=== PATIENT | female | born 1970 | race Hispanic/Latino ===

== ENCOUNTER 2020-02-29 20:46 | Inpatient (IN) | payer OTHER ==
[~2020-02-29] VITALS: Ht 152.4 cm; Wt 84.6 kg
[2020-02-29] MEDS ORDERED: AZITHROMYCIN 250 MG TABLET PO ONE (22:38)
[2020-02-29] MEDS ORDERED: DEXAMETHASONE SOD PHOSPHATE 10MG/ML 1ML VIAL ONE (22:38)
[2020-02-29] MEDS ORDERED: CEFTRIAXONE SODIUM 1 GM ONE (23:40)
[2020-03-01] MEDS ORDERED: ONDANSETRON HCL 4 MG/2 ML VIAL IV PRN (04:45)
[2020-03-01] MEDS ORDERED: GUAIFENESIN-DM 200/20 MG 10 ML PO PRN (04:45)
[2020-03-01] MEDS ORDERED: ACETAMINOPHEN 325 MG TAB PO PRN ×2 (04:45)
[2020-03-01] MEDS ORDERED: CEFTRIAXONE SODIUM 1 GM IVP SCH (06:00)
[2020-03-01] MEDS ORDERED: METHYLPREDNISOLONE SOD SUCC 40MG/ML 1ML ONE ×3 (08:03→23:38)
[2020-03-01] MEDS ORDERED: CEFTRIAXONE SODIUM 1 GM ONE ×2 (08:04→19:54)
[2020-03-01] MEDS ORDERED: AZITHROMYCIN 500MG+NS 250ML 250 ML IV ONE (08:04)
[2020-03-01] MEDS ORDERED: FAMOTIDINE/PF 20 MG/2 ML VIAL IV ONE ×2 (08:05→19:55)
[2020-03-01 08:35] VITALS: PULSE 90; RESP 16
--- NOTE | 2020-03-01 12:00 | NUR ---
CONTACT YOHAN ON FACE SHEET INCORRECT. ADVISED REGISTRATION. PENDING CONTACT NUMBERS AT THIS TIME UNABLE TO COMPLETE PHONE INTERVIEW FOR IA Addendum: 03/01/20 at 1855 by DEUCE CISNEROS RN CM Amended: Links added.
[2020-03-01] MEDS ORDERED: ACETAMINOPHEN 325 MG TAB ONE (19:54)
[2020-03-01] MEDS ORDERED: ENOXAPARIN SODIUM 100 MG/1 ML SQ ONE (19:57)
[2020-03-02] MEDS ORDERED: ENOXAPARIN SODIUM 100 MG/1 ML SQ ONE (08:50)
[2020-03-02] MEDS ORDERED: CEFTRIAXONE SODIUM 1 GM ONE ×2 (08:50→21:37)
[2020-03-02] MEDS ORDERED: METHYLPREDNISOLONE SOD SUCC 40MG/ML 1ML ONE ×2 (08:50→18:25)
[2020-03-02] MEDS ORDERED: FAMOTIDINE/PF 20 MG/2 ML VIAL IV ONE (08:51)
[2020-03-02] MEDS ORDERED: ACETAMINOPHEN 325 MG TAB ONE (13:51)
[2020-03-02] MEDS ORDERED: ENOXAPARIN SODIUM 80 MG/0.8 ML SQ ONE (21:36)
[2020-03-02] MEDS ORDERED: AZITHROMYCIN 500MG+NS 250ML 250 ML IV ONE (21:37)
--- NOTE | 2020-03-02 22:29 | NUR ---
CURRENT HOME ADDRESS [id number], [facility] [place].
[2020-03-02] MEDS: AZITHROMYCIN 500MG+NS 250ML 250 ML IV SCH (23:00)
[2020-03-02] MEDS ORDERED: INSULIN HUMULIN R 100 UNIT/ML 3ML ONE (23:08)
[2020-03-03] VITALS (8 sets, daily range): BP systolic 126–153; BP diastolic 80–95; PULSE 57–66; RESP 16–20; TEMP 97.3–98.3
[2020-03-03] MEDS: METHYLPREDNISOLONE SOD SUCC 40MG/ML 1ML IVP SCH ×3 (06:00→14:00)
[2020-03-03] MEDS: INSULIN HUMULIN R 100 UNIT/ML 3ML SQ SCH ×4 (07:30→20:17)
[2020-03-03] MEDS: CEFTRIAXONE SODIUM 1 GM IVP SCH ×2 (08:32→20:49)
[2020-03-03] MEDS: ENOXAPARIN SODIUM 80 MG/0.8 ML SQ SCH ×2 (08:33→20:49)
[2020-03-03] MEDS: FAMOTIDINE/PF 20 MG/2 ML VIAL IV SCH ×2 (08:33→20:46)
--- NOTE | 2020-03-03 16:48 | NUR ---
DR. DAVILA IS MAKING HIS ROUNDS OUTSIDE ROOM. REPORTED TO MD THAT PATIENT IS ON 2L OF O2 NC BUT STILL GETS SOB WITH EXERTION. SAID OK TO CHANGE SOLU IV TO DECADRON PO. CONTINUE ANTICOAGULATION WITH LOVENOX.
[2020-03-03] MEDS ORDERED: POLYETHYLENE GLYCOL 3350 17 GM POWD.PACK PO PRN (17:30)
[2020-03-03] MEDS: AZITHROMYCIN 500MG+NS 250ML 250 ML IV SCH (20:49)
[2020-03-04 03:15] VITALS: BP 131/96; PULSE 77; RESP 18; TEMP 98
[2020-03-04] MEDS: INSULIN HUMULIN R 100 UNIT/ML 3ML SQ SCH ×2 (07:30→11:30)
[2020-03-04 08:00] VITALS: BP 139/79; PULSE 60; RESP 18; TEMP 97.6
--- NOTE | 2020-03-04 08:15 | NUR ---
AM ASSESSMENT PT LAYING IN BED, HOB ELEVATED 30 DEGREES, WATCHING TV. A/O X 3. SOB ON EXERTION. NO DISTRESS NOTED. O2 NC 2L. DENIES CHEST PAIN OR DISCOMFORT. DENIES PALPITATIONS. TELE: SR. DENIES N/V AND/OR DIARRHEA. UP AD FORTUNATO. INSTRUCTED TO CALL FOR ASSISTANCE. CALL MOOKIE W/IN REACH.
[2020-03-04] MEDS: ENOXAPARIN SODIUM 80 MG/0.8 ML SQ SCH (08:19)
[2020-03-04] MEDS: FAMOTIDINE/PF 20 MG/2 ML VIAL IV SCH (08:19)
[2020-03-04] MEDS: CEFTRIAXONE SODIUM 1 GM IVP SCH (08:22)
[2020-03-04] MEDS ORDERED: DEXAMETHASONE 4 MG TAB PO SCH (09:00)
--- NOTE | 2020-03-04 10:47 | NUR ---
JOLIE PLAN PATIENT IN COVID UNIT. CALLED PHONE IN ROOM NO ANSWER. FACE SHEET HAS NO INFO FOR OTHER PERSON OR PATIENT CELL PHONE. WILMAR WILL CONTINUE TO TRY. Addendum: 03/04/20 at 1048 by JAIME BAKER RN CM Amended: Links added.
[2020-03-04 11:30] VITALS: BP 122/77; PULSE 59; RESP 20; TEMP 96.7
--- NOTE | 2020-03-04 13:35 | NUR ---
MD UPDATE DR ALCALA UPDATED ON PT'S CURRENT STATUS & PLAN OF CARE VIA TELEPHONE. DR ALCALA PLANS TO CALL PT'S CELL PHONE & SPEAK W/PT; PT INFORMED. PLAN FOR DC HOME TODAY.
[2020-03-04 13:55] VITALS: PULSE 90; PULSE 93; RESP 18; RESP 22
[2020-03-04 15:16] VITALS: BP 128/76; PULSE 76; RESP 20; TEMP 98
--- NOTE | 2020-03-04 15:20 | NUR ---
DISCHARGE VERBAL & WRITTEN DISCHARGE INSTRUCTIONS REVIEWED & GIVEN TO PT. QUESTIONS ENCOURAGED & CLARIFIED. PROPER CARE, MGT & PREVENTION OF COVID 19 REVIEWED. RECOMMENDED CDC GUIDELINES FOR COVID 19 REVIEWED & REINFORCED. FORM SIGNED BY PT, PLACED IN CHART. INFORMED PT TO CONTINUE TO MAINTAIN ISOLATION X 21 DAYS. NEW PRESCRIBED MEDICATIONS REVIEWED. PT INFORMED TO COMPLETE MEDICATION THERAPY INDICATED BY MD. REVIEWED & REINFORCED RISKS OF DEVELOPING CLOTS. TELE CORINE REMOVED EARLIER. IV DISCONTINUED. PT FAMILY TO MDS RN PT FROM HOSPITAL. PT TO NOTIFY STAFF WHEN FAMILY ARRIVES TO HOSPITAL.
--- NOTE | 2020-03-04 16:35 | NUR ---
DISCHARGE FAMILY HERE TO TAKE PT HOME. PT TAKEN TO PRIVATE VEHICLE VIA WC BY Farhana CORRAL RN. NO DISTRESS NOTED.
== END 2020-03-04 16:34 | disposition home or self-care (01) | DRG 177 ==
LOC: EDH 20:46 → EDHIP 20:47 → 2AH 03-03 04:05
PROVIDERS: ADMIT Internal Medicine; ATTEND Internal Medicine
DX: U07.1 COVID-19 (principal); J12.89 Other viral pneumonia; J96.01 Acute respiratory failure with hypoxia; I10 Essential (primary) hypertension; E66.01 Morbid (severe) obesity due to excess calories; Z68.37 Body mass index [BMI] 37.0-37.9, adult; Z91.040 Latex allergy status; Z79.01 Long term (current) use of anticoagulants